=== PATIENT | female | born 1985 | race Caucasian/White ===

== ENCOUNTER 2019-01-30 11:06 | Inpatient (IN) ==
[2019-01-30] MEDS ORDERED: LR 3,000 ML ONE (11:54)
[2019-01-30] MEDS ORDERED: ZOFRAN IV PRN ×2 (11:58→12:03)
[2019-01-30] MEDS ORDERED: STADOL IV PRN ×2 (11:58→12:03)
[2019-01-30] MEDS ORDERED: PEPCID IV PRN ×2 (11:58→12:03)
[2019-01-30] MEDS ORDERED: LR 500 ML IV ONE ×2 (11:58→12:03)
[2019-01-30] MEDS ORDERED: PEPCID PO PRN ×2 (11:58→12:03)
[2019-01-30] MEDS ORDERED: PEPCID PO ONE ×2 (11:58→12:03)
[2019-01-30] MEDS ORDERED: REGLAN PO ONE ×2 (11:58→12:03)
[2019-01-30] MEDS ORDERED: KEFZOL 1 GM/D5W 1 GM/50 ML IVPB IV PRN ×2 (11:58→12:03)
[2019-01-30] MEDS ORDERED: LR 1,000 ML IV SCH (12:00)
[2019-01-30] MEDS ORDERED: PITOCIN 10 UNITS/NS 1,000 ML IV SCH (12:00)
[2019-01-30] MEDS ORDERED: SODIUM CHLORIDE 0.9% INJ SCH ×2 (12:00→12:15)
[2019-01-30] MEDS ORDERED: TYLENOL PO PRN (12:03)
[2019-01-30] MEDS ORDERED: PITOCIN 30 UNITS/NS 30 UNIT/500 ML IV.SOLN IV SCH ×2 (12:15→19:30)
[2019-01-30 12:58] LABS: BASO% 0.1 % (0.0-0.8); EOS% 0.9 % (0.0-10.0); HEMATOCRIT 35.9 % (37.0-47.0); LYMPH# 2.76 X1000 (1.2-3.4); LYMPH% 17.5 % (20.5-51.1); MCH 30.9 PG (27-31); MCHC 33.4 g/dL (33-37); MCV 92.5 FL (81-99); MPV 11.1 FL (7.4-10.4); NEUT# 11.73 X1000 (1.4-6.5); NEUT% 74.5 % (42.2-75.2); PLT 193 X1000 (130-400); RBC 3.88 XMIL (4.2-5.4); RDW 14.2 % (11.5-14.5); WBC 15.75 X1000 (4.8-10.8)
[2019-01-30 12:59] LABS: BASO# 0.02 X1000 (0.0-0.2); EOS# 0.14 X1000 (0.0-0.7); IMM GRAN# 0.16 X1000 (0.0-0.04); MONO# 0.94 X1000 (0.11-0.59)
[2019-01-30] MEDS ORDERED: FENTANYL-BUPIV-NS 2 MCG-0.1% 250 ML EPIDURAL PRN (13:51)
[2019-01-30] MEDS ORDERED: FENTANYL IV ONE (14:00)
[2019-01-30] MEDS ORDERED: NAROPIN 0.2% INJ ONE (14:00)
[2019-01-30] MEDS: LR 1,000 ML IV SCH ×2 (14:24→15:52)
--- NOTE | 2019-01-30 14:54 | HISTORY AND PHYSICAL ---
HISTORY OF PRESENT ILLNESS: The patient is a 33-year-old, G4, P3-0-0-3 at 39 weeks and 5 days, who presents to Labor and Delivery in early labor. The patient reports positive movement, positive contractions. Negative leakage of fluid and mild vaginal spotting. MEDICATIONS: Include vitamins. PAST MEDICAL HISTORY: Denies. PAST SURGICAL HISTORY: LEEP procedure for cervical dysplasia. 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 Menarche at age 12. OBSTETRICAL HISTORY: G4, P 3-0-0-3, 1 spontaneous vaginal delivery in 2002, 2nd spontaneous vaginal delivery in 2003. Third spontaneous vaginal delivery in 2014. FAMILY HISTORY: Maternal grandfather with hypertension. Paternal grandmother with hypertension. Maternal grandmother with diabetes. SOCIAL HISTORY: Positive tobacco use, 20 pack years. Denies alcohol or drug use. VITAL SIGNS: Stable. PHYSICAL EXAMINATION: GENERAL: No acute distress. Alert, awake, oriented x3. CARDIOVASCULAR: Regular rate and rhythm. Positive S1, S2. RESPIRATORY: Clear to auscultation bilaterally. Negative rhonchi, rales, or wheezing. ABDOMEN: Gravid, nontender to palpation. EXTREMITIES: Negative calf tenderness. PELVIC: Vaginal exam. STERILE VAGINAL EXAM: 2 cm dilated, 80% effaced -2. ELECTRONIC MONITORING: Baseline 125 beats per minute, moderate variability. Positive accelerations. Negative decelerations. Tocometry, irregular contractions. LABORATORY: White blood cell count 15.75, hemoglobin 12, hematocrit 35.9, platelets 193,000. ASSESSMENT: Ms. De Leon is a 33-year-old G4, P 3-0-0-3 at 39 weeks and 5 days who presents in early labor. PLAN: 1. Admit to Labor and Delivery for augmentation of labor. 2. Obtain routine labor labs. 3. Continue with monitoring. 4. Estimated weight 8 and a half pounds. 5. Anticipate spontaneous vaginal delivery.
[2019-01-30] MEDS ORDERED: XYLOCAINE-MPF 1% INJ PRN (19:24)
[2019-01-30] MEDS ORDERED: ATARAX PO PRN (19:24)
[2019-01-30] MEDS ORDERED: CYTOTEC PO PRN (19:24)
[2019-01-30] MEDS ORDERED: BOOSTRIX VACCINE IM ONE (19:24)
[2019-01-30] MEDS ORDERED: AMBIEN PO PRN (19:24)
[2019-01-30] MEDS ORDERED: PERI MEDS (DERMOPLAST/NUPERCAINAL/TUCKS) MISC PRN (19:24)
[2019-01-30] MEDS ORDERED: MINERAL OIL PO PRN (19:24)
[2019-01-30] MEDS ORDERED: M-M-R II VACCINE SUBQ ONE (19:24)
[2019-01-30] MEDS ORDERED: BENADRYL IV PRN (19:24)
[2019-01-30] MEDS ORDERED: BENADRYL PO PRN (19:24)
[2019-01-30] MEDS ORDERED: PITOCIN IM PRN (19:24)
[2019-01-30] MEDS ORDERED: HYDROXYZINE IM PRN (19:24)
[2019-01-30] MEDS ORDERED: PITOCIN 20 UNITS/NS 20 UNITS/1,000 ML IV.SOLN IV SCH (19:30)
[2019-01-30 20:33] LABS: UR AMPHETAMINES QUAL NONE DETECTED (NONE DETECT); UR BARBITUATES QUAL NONE DETECTED (NONE DETECT); UR BENZODIAZEPIN QUAL NONE DETECTED (NONE DETECT); UR CANNABINOIDS QUAL NONE DETECTED (NONE DETECT); UR COCAINE QUAL NONE DETECTED (NONE DETECT); UR METHADONE QUAL NONE DETECTED (NONE DETECT); UR METHAMPHETAMINE QUAL NONE DETECTED (NONE DETECT); UR OPIATES QUAL NONE DETECTED (NONE DETECT); UR OXYCODONE QUAL NONE DETECTED (NONE DETECT); UR PCP QUAL NONE DETECTED (NONE DETECT); UR PROPOXYPHENE QUAL NONE DETECTED (NONE DETECT); UR TCA QUAL NONE DETECTED (NONE DETECT)
[2019-01-30] MEDS: PERICOLACE PO SCH (22:55)
[2019-01-30] MEDS: MOTRIN PO PRN (22:55)
--- NOTE | 2019-01-31 03:55 | OPERATIVE NOTE ---
PROCEDURE DATE: 01/30/2019 DELIVERY NOTE: SURGEON: Tyler Lomas DO. AGING ROOM OPERATOR: Ynes Perez, -3. DESCRIPTION OF PROCEDURE: At 1906 hours, the patient delivered a viable female , weighing 7 pounds 4 ounces with 's of 9 and 10 at one and five minutes respectively. The vertex was delivered spontaneously over intact perineum. No nuchal cord was identified. The anterior shoulder was delivered atraumatically by maternal expulsive forces with the assistance of downward traction. The posterior shoulder delivered with maternal expulsive forces efforts and upward traction. Remainder of the fetus delivered spontaneously. Upon delivery, the cord was clamped and cut. 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 Cord blood was obtained. Placenta delivered spontaneously intact with a three-vessel cord. To enhance uterine contractions, IV oxytocin was administered. The cervix, vagina, and perineum were inspected for lacerations, no lacerations identified. Estimated blood loss 250 mL.
[2019-01-31 05:41] LABS: BASO# 0.03 X1000 (0.0-0.2); BASO% 0.2 % (0.0-0.8); EOS# 0.12 X1000 (0.0-0.7); EOS% 0.8 % (0.0-10.0); HEMATOCRIT 31.7 % (37.0-47.0); HEMOGLOBIN 10.2 g/dL (12.0-16.0); IMM GRAN# 0.11 X1000 (0.0-0.04); IMM GRAN% 0.8 % (0.0-0.5); LYMPH# 2.82 X1000 (1.2-3.4); LYMPH% 19.8 % (20.5-51.1); MCH 30.4 PG (27-31); MCHC 32.2 g/dL (33-37); MCV 94.3 FL (81-99); MONO% 7.7 % (1.7-9.3); MPV 11.1 FL (7.4-10.4); NEUT# 10.04 X1000 (1.4-6.5); NEUT% 70.7 % (42.2-75.2); PLT 177 X1000 (130-400); RBC 3.36 XMIL (4.2-5.4); RDW 14.2 % (11.5-14.5); WBC 14.22 X1000 (4.8-10.8)
[2019-01-31] MEDS: MOTRIN PO PRN ×2 (06:17→15:02)
--- NOTE | 2019-01-31 06:55 | OB/GYN PROGRESS NOTE ---
Progress Note OB - . OB Progress Note: Vital Signs - 24 hr 01/30/19 19:25 01/30/19 19:35 01/30/19 19:45 Temperature 96.7 F L Pulse Rate 99 H 95 H 89 Respiratory Rate 18 18 18 Blood Pressure 107/64 Blood Pressure [Left Arm] 107/64 113/69 132/58 O2 Sat by Pulse Oximetry 96 96 97 01/30/19 19:55 01/30/19 20:00 01/30/19 20:05 Temperature 96.7 F L Pulse Rate 94 H 85 89 Respiratory Rate 18 18 18 Blood Pressure 113/62 Blood Pressure [Left Arm] 105/52 O2 Sat by Pulse Oximetry 96 97 99 01/30/19 20:15 01/30/19 20:25 01/31/19 00:00 Temperature 97.0 F L Pulse Rate 94 H 85 93 H Respiratory Rate 18 18 18 Blood Pressure 113/62 121/60 Blood Pressure [Left Arm] 109/55 113/62 O2 Sat by Pulse Oximetry 97 97 98 01/31/19 03:37 Temperature 97.5 F L Pulse Rate 89 Respiratory Rate 18 Blood Pressure 120/66 Blood Pressure [Left Arm] O2 Sat by Pulse Oximetry 97 Laboratory Results - last 24 hr 01/30/19 01/30/19 01/30/19 11:00 11:50 11:50 WBC 15.75 H RBC 3.88 L Hgb 12.0 Hct 35.9 L MCV 92.5 MCH 30.9 MCHC 33.4 RDW Std Deviation 14.2 Plt Count 193 MPV 11.1 H Immature Gran % (Auto) 1.0 H Neut % (Auto) 74.5 Lymph % (Auto) 17.5 L Ida % (Auto) 6.0 Eos % (Auto) 0.9 Baso % (Auto) 0.1 Immature Gran # (Auto) 0.16 H Neut # (Auto) 11.73 H Lymph # (Auto) 2.76 Ida # (Auto) 0.94 H Eos # (Auto) 0.14 Baso # (Auto) 0.02 Urine Opiates Screen NONE DETECTED Ur Oxycodone Screen NONE DETECTED Urine Methadone Screen NONE DETECTED U Propoxyphene Qual NONE DETECTED Ur Barbituates Screen NONE DETECTED Ur Tricyclics Screen NONE DETECTED Ur Phencyclidine Scrn NONE DETECTED Ur Amphetamines Screen NONE DETECTED U Methamphetamines Scrn NONE DETECTED U Benzodiazepines Scrn NONE DETECTED Urine Cocaine Screen NONE DETECTED U Cannabinoids Screen NONE DETECTED RPR NON-REACTIVE 01/31/19 04:33 WBC 14.22 H RBC 3.36 L Hgb 10.2 L Hct 31.7 L MCV 94.3 MCH 30.4 MCHC 32.2 L RDW Std Deviation 14.2 Plt Count 177 MPV 11.1 H Immature Gran % (Auto) 0.8 H Neut % (Auto) 70.7 Lymph % (Auto) 19.8 L Ida % (Auto) 7.7 Eos % (Auto) 0.8 Baso % (Auto) 0.2 Immature Gran # (Auto) 0.11 H Neut # (Auto) 10.04 H Lymph # (Auto) 2.82 Ida # (Auto) 1.10 H Eos # (Auto) 0.12 Baso # (Auto) 0.03 Urine Opiates Screen Ur Oxycodone Screen Urine Methadone Screen U Propoxyphene Qual Ur Barbituates Screen Ur Tricyclics Screen Ur Phencyclidine Scrn Ur Amphetamines Screen U Methamphetamines Scrn U Benzodiazepines Scrn Urine Cocaine Screen U Cannabinoids Screen RPR No complaints, denies PIH/Orthostatic symptoms. A&O NAD CTAB RRR S/ND/Fundus firm Normal lochia No C/C/E PPD 1 s/p doing well - ambulate - post care - anticipate D/C home Monday.
[2019-01-31] MEDS: TYLENOL PO PRN ×2 (13:16→20:51)
[2019-01-31] MEDS: PERICOLACE PO SCH (20:51)
[2019-02-01] MEDS: MOTRIN PO PRN (04:07)
[2019-02-01 07:16] VITALS: BP 118/70
--- NOTE | 2019-02-01 07:50 | OB/GYN PROGRESS NOTE ---
Progress Note OB - . OB Progress Note: Vital Signs - 24 hr 01/31/19 07:54 01/31/19 11:50 01/31/19 16:15 Temperature 96.2 F L 96.1 F L 96.3 F L Pulse Rate 68 91 H 97 H Respiratory Rate 20 16 16 Blood Pressure 115/73 129/68 115/57 O2 Sat by Pulse Oximetry 97 97 96 01/31/19 20:40 02/01/19 04:00 02/01/19 07:16 Temperature 97 F L 96.0 F L 97.9 F Pulse Rate 82 92 H 86 Respiratory Rate 18 18 16 Blood Pressure 112/62 137/82 118/70 O2 Sat by Pulse Oximetry 96 96 PP2 no cx s/nt ambulating jesenia reg voiding ready for home
[2019-02-01] MEDS: TYLENOL PO PRN (10:45)
--- NOTE | 2019-02-02 07:22 | DISCHARGE SUMMARY ---
ADMISSION DATE: 01/30/2019 DISCHARGE DATE: 02/01/2019 ADMITTING DIAGNOSES: 1. Term . 2. Early labor. DISCHARGE DIAGNOSES: 1. Term . 2. Early labor. 3. Liveborn delivered via repeat primary. 4. Liveborn infant delivered via vaginal delivery. BRIEF HOSPITAL COURSE: The patient is a 33-year-old, 4, para 3, now 4, who is admitted at 39-5/7th's weeks gestation for to Labor and delivery for early labor. She undergoes a normal spontaneous vaginal delivery without difficulty or complication. is Apgars 9 and 10, weighing 7 pounds and 4 ounces. Her course was uncomplicated. On day #1, she is afebrile with stable vital signs. She is ambulating, voiding, tolerating regular diet. Hemoglobin 10.2, down from 12. Vital signs stable afebrile. On day #1, ambulating, voiding, tolerating regular diet. Vital signs stable, afebrile. DISPOSITION: She is discharged home in stable condition. DISCHARGE INSTRUCTIONS: She is asked to follow up in the office in 6 weeks. Call the office for pain, fever greater than 100.4, abnormal uterine bleeding. Maintain pelvic rest, regular diet. DISCHARGE MEDICATIONS: Continue vitamins and iron. A prescription for Motrin provided.
== END 2019-02-01 13:30 | disposition home or self-care (01) | DRG 807 ==
LOC: P.LD 11:06
PROVIDERS: ADMIT Obstetrics & Gynecology; ATTEND Obstetrics & Gynecology